=== PATIENT | female | born 1980 | race Caucasian/White ===

== ENCOUNTER 2024-07-15 15:39 | Emergency (ER) | payer MEDICARE, SELFPAY ==
[2024-07-15 15:42] VITALS: BP 124/65; PULSE 56; RESP 18; TEMP 35.5; O2SAT 97; BMI 28.8
--- NOTE | 2024-07-15 15:57 | EDS_ITS ---
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 Patient status post hysterectomy with left oophorectomy May 11 for history of uterine fibroids and vaginal bleeding. She is on Coumadin history of valve repair 2016. This was performed by Dr. William. She states she followed up 2 to 3 weeks ago was cleared back to normal activities. She has been doing lifting with plans of moving here recently. Yesterday evening prior to taking a bath had slight bleeding then clots. Today more heavy clots going through 5 soaked pads since 9:30 AM little over 6 hours ago. She states she has felt fatigued since yesterday. She has had blood transfusion from gastric bypass 2018. Denies any abdominal or pelvic pain. She did report 3 weeks postop she had a laparoscopic stitch break seen at outside ER with suturing that controlled hemostasis. PFSH PFSH Allergy/AdvReac Type Severity Reaction Status Date / Time escitalopram (From Lexapro) AdvReac Mild Rash Verified 07/15/24 16:21 Social History Smoking Status: Current every day smoker tobacco type: cigarettes ROS ROS ED Constitutional Constitutional ED: Denies chills, fever(s) or sweats Eyes Eyes: Denies change in vision ENT ENT ED: Denies dysphagia or sore throat Cardiovascular Cardiovascular: Denies chest pain, leg edema, palpitations or racing heartbeat Respiratory/Chest Respiratory/Chest: Denies cough, dyspnea or dyspnea on exertion Gastrointestinal Gastrointestinal: Denies abdominal pain, diarrhea, nausea or vomiting Genitourinary Genitourinary ED: Reports other Details: vaginal bleeding w/ clots ; Denies dysuria, hematuria or urinary frequency Musculoskeletal Musculoskeletal: Denies back pain, extremity pain or neck pain Integumentary Denies rash or wounds Neurologic Neurologic: Denies headache(s), paresthesias or weakness EXAM Physical Exam Const Vital Signs: 07/15/24 15:42 07/15/24 17:40 07/15/24 19:00 Temperature 96 F L Temperature Source Temporal Pulse Rate 56 L 55 L 86 Respiratory Rate 18 17 19 H Blood Pressure 124/65 H 114/53 L 104/61 Blood Pressure Mean 84 73 75 Pulse Ox 97 97 97 Oxygen Delivery Method Room Air Room Air Room Air 07/15/24 21:00 07/15/24 23:00 07/16/24 01:00 Temperature 98 F Temperature Source Pulse Rate 45 L 43 L 61 Respiratory Rate 15 18 21 H Blood Pressure 109/45 L 124/53 H 105/54 L Blood Pressure Mean 66 76 71 Pulse Ox 97 98 97 Oxygen Delivery Method Room Air Room Air Positive well nourished and well developed General Appearance ED: well developed and NAD HEENT Reports moist mucous membranes normocephalic and atraumatic Eyes EOMs intact bilaterally and conjunctivae normal Eyes Narrative: Slight pallor of conjunctiva General Eye ED: Yes normal appearance of both eyes Neck no lymphadenopathy and supple General: Negative for tenderness Chest Wall Chest: Negative for tenderness Resp normal respiratory effort and normal air movement Effort and Inspection: symmetric chest movement; Negative for respiratory distress Cardio regular rate, regular rhythm and no murmurs Peripheral Pulses: pulses 2+ throughout GI normal to inspection, nondistended, normoactive bowel sounds and non-tender Palpation: Negative for guarding or rebound tenderness present Narrative: Speculum exam with nursing present: Fresh bright red blood in the vault, there was a clot region of the the previous cervix with suturing noted. There was no dehiscence of the wound. There was small amount of blood from this area. There is no other areas of injury noted. Back/Spine no CVA tenderness and no thoracic nor lumbar tenderness Extremity normal to inspection General Extremety ED: Negative for edema or tenderness General Extremity: Negative for edema Neuro oriented x3 and no sensory deficits noted Sensorium / Orientation: awake and alert Skin no rashes or lesions noted and no wounds MDM MDM MDM Narrative Medical decision making narrative: Interventions / MDM: Differential diagnosis: Dysfunction vaginal bleeding, chronic anticoagulation Diagnosis considered but do not suspect: No wound dehiscence noted. My EKG interpretation: N/A Imaging independently reviewed and interpreted by myself: CT abdomen pelvis IV contrast: Discussed with radiologist, hyperdense region above the cervix concerning for active bleed. External documents reviewed: N/A Test considered but not ordered:N/A ED course: Patient on warfarin vaginal bleeding status post laparoscopic hysterectomy but over 2 months ago. Laboratory studies were obtained. Vaginal exam fresh blood with small clot noted at the surgical wound site. There is no dehiscence. 1620: Hemoglobin 11.9. Awaiting INR. Will discuss with gynecology service image of choice for evaluation. 1624: I spoke with [facility] OB team with [place], discussed patient's history on warfarin and concerns of bleeding. Agrees with obtaining a CT abdomen pelvis IV contrast this time. Will monitor bleeding and callback. 2054: Patient was seen by Dr. Vallejo in the ED. With her medical history and limited equipment and staff down in the [facility]. She recommended transfer she made calls to [facility]. I discussed with Dr. Mindi Resendiz, [employer] at [facility]. She would like me to place a Rinaldi down the ED and packed the vaginal region and we will plan a ED to ED transfer to [facility]. 2199: nursing present Rinaldi was placed. Speculum exam again there was bright red blood in the vault, there was clots. This was removed with a Q-tip. Nursing reported she removed 1 gauze. Per MANAGER MAIL note, reported there was 2 gauze placed, however thorough examination did not see additional gauze. I used Curlex dressing packed the vaginal vault using forceps. This was all done in 1 piece. I spoke with the ED physician Dr. Gurrola. Requested redraw H&H. Her H&H did return at 9.6 down from 11.9. Her blood pressure is stable. 0030: Awaiting transport at this time. Blood pressure been stable. per nursing no significant bleeding from the packing. It has been 3 hours since her H&H. Will recheck at this time. 0034: Repeat hemoglobin went up to 10.3. Re-evaluation: stable Disposition discussed with patient/family/significant other: Patient Case discussed with consulting clinician: [facility] gynecology, Dr. Vallejo. [facility] gynecology Dr. Resendiz, ED physician [facility] Dr. Gurrola This note was generated with [employer] dictation software. It may contain incorrect words, spelling, and punctuation that were not noted in checking the note before signing. Lab Data Attestation: I reviewed the patient's lab results. Labs: Laboratory Results - last 24 hr 07/15/24 07/15/24 07/15/24 16:10 17:13 21:22 WBC 5.7 RBC 4.06 L Hgb 11.9 L 9.6 L Hct 37.0 30.3 L MCV 91.1 MCH 29.3 MCHC 32.2 RDW Std Deviation 47.0 H RDW Coeff of Escobar 14.0 Plt Count 226 MPV 11.4 Immature Gran % (Auto) 0.200 Neut % (Auto) 66.8 Lymph % (Auto) 22.0 Hettinger % (Auto) 7.2 Eos % (Auto) 3.5 Baso % (Auto) 0.3 Absolute Neuts (auto) 3.8 Absolute Lymphs (auto) 1.26 Nucleated RBC % 0 PT 31.4 H INR 3.1 APTT 44.9 H Sodium 142 Potassium 3.8 Chloride 112 H Carbon Dioxide 26.0 Anion Gap 4 L BUN 13 Creatinine 0.88 Estim Creat Clear Calc 68.90 Est GFR (MDRD) Af Amer 89 Est GFR (MDRD) Non-Af 74 BUN/Creatinine Ratio 14.8 Glucose 139 H Calcium 8.7 Blood Type A POSITIVE Antibody Screen NEGATIVE 07/16/24 00:27 WBC RBC Hgb 10.3 L Hct 32.8 L MCV MCH MCHC RDW Std Deviation RDW Coeff of Escobar Plt Count MPV Immature Gran % (Auto) Neut % (Auto) Lymph % (Auto) Hettinger % (Auto) Eos % (Auto) Baso % (Auto) Absolute Neuts (auto) Absolute Lymphs (auto) Nucleated RBC % PT INR APTT Sodium Potassium Chloride Carbon Dioxide Anion Gap BUN Creatinine Estim Creat Clear Calc Est GFR (MDRD) Af Amer Est GFR (MDRD) Non-Af BUN/Creatinine Ratio Glucose Calcium Blood Type Antibody Screen Radiography Diagnostic Testing: Clinical Impression(s) from Imaging Studies Abdomen/Pelvis CT 07/15/24 16:27 IMPRESSION: Small hyperdense focus in the vaginal cuff or cervix, on the left possibly a focus of active bleeding, versus prominent vessel. No acute intra-abdominal findings. Electronically Signed: Essence Velarde MD at 17:20 EDT , ADDENDUM: 07/15/24 8575 IMPRESSION: Small hyperdense focus in the vaginal cuff or cervix, on the left possibly a focus of active bleeding, versus prominent vessel. No acute intra-abdominal findings. N.B. : The above Results were Read Back by Essence Velarde MD to Edgard Killian DO, and understanding confirmed on 07/15/2024 17:27:23 (ET). Electronically Signed: Essence Velarde MD at 17:20 EDT , Critical Care Time Critical Care Time: Yes Critical care time (excluding procedures): 30-74 minutes, Including time spent:, Discussing w/Patient &/or Family/Paraoptometric, Discussing w/Consultants, Arranging Admission or Transfer, Performing Direct Patient Care at Bedside and - (45 minutes) Discharge Plan Triage Chief Complaint: Vag Bleeding ED Provider: Edgard Killian Dx/Rx/DC Orders Clinical Impression: Postoperative hemorrhage, Chronic anticoagulation, Status post hysterectomy, Mechanical heart valve present, Anemia Primary Care Provider: Jim Macedo Referrals: Jim Macedo MD [Primary Care Provider] - Print Language: Indian Disposition Disposition: DC/Tx to Another Type of HCF
[2024-07-15 16:15] LABS: Absolute Lymphocyte Count 1.26 X10^3/uL (0.83-4.51); Absolute Neutrophil Count 3.8 X10^3/uL (2.0-7.7); Basophil# 0.02 X10^3/uL; Basophil% 0.3 % (0-1); Eosinophils% 3.5 % (0-5); Hemoglobin 11.9 g/dL (12.0-15.0); Lymphocyte # 1.26 X10^3/ul (0.83-4.51); Mean Corp Hgb Conc 32.2 g/dL (32-36); Mean Corpuscular Hgb 29.3 pg (27.0-32.0); Mean Corpuscular Volume 91.1 fL (81-99); Mean Platelet Vol. 11.4 fl (6.2-12.0); Monocyte# 0.41 X10^3/uL; Monocyte% 7.2 % (0-10); NRBC Flagged by Analyzer 0 % (0-5); Neutrophil # 3.82 X10^3/uL (2.7-7.7); Neutrophil % 66.8 % (47-70); Platelet Count 226 K/mm3 (150-450); Red Blood Count 4.06 M/mm3 (4.2-5.4); White Blood Count 5.7 K/mm3 (4.4-11.0)
[2024-07-15 16:26] LABS: International Normalized Ratio 3.1; Prothrombin Time (Protime)PT. 31.4 SECONDS (11.7-14.9)
[2024-07-15 16:27] LABS: Partial Thromboplast Time 44.9 Seconds (24.1-36.2)
--- NOTE | 2024-07-15 16:27 | CT_ITS ---
We are attempting to reach an attending provider to discuss findings. An addendum with communication details will be sent when the communication is complete. EXAM: CT Abdomen And Pelvis W/ Contrast Injection HISTORY: vaginal bleed TECHNIQUE: Routine protocol CT abdomen pelvis. IV Contrast: IV 100mL Isovue-370 . Oral Contrast: without. Sagittal and coronal images were reconstructed. RADIATION DOSAGE (If Supplied By Facility): CTDIvol = ( 17.22 ) mGy, DLP = ( 881.24 ) mGycm Individualized dose optimization techniques were used for this CT. COMPARISON: CT abdomen and pelvis 10/16/2010. LIMITATIONS: None. FINDINGS: LOWER CHEST: Interstitial changes in the lung bases. Calcifications along the left ventricular wall. Pacemaker lead, mitral valve prosthesis, sternal wires. LIVER: Unremarkable. GALLBLADDER/BILE DUCTS: Gallbladder not identified presumed surgically absent. PANCREAS: Unremarkable. SPLEEN: Unremarkable. ADRENAL GLANDS: Unremarkable. KIDNEYS / URETERS: Unremarkable. BOWEL / MESENTERY: Surgical clips in the upper and left mid abdomen post gastric bypass. No bowel obstruction. APPENDIX: Identified and normal. No evidence of acute appendicitis. PERITONEUM: No free air. No free fluid. VESSELS: Abdominal aorta is normal caliber. RETROPERITONEUM: Unremarkable. REPRODUCTIVE ORGANS: Uterus is not identified. There is a small hyperdense focus in the vaginal cuff to the left of midline possibly prominent vessel, active bleeding not entirely excluded. BLADDER: Unremarkable. ABDOMINAL WALL: Unremarkable. BONES: No acute abnormality. OTHER: None. CT/Abdomen/Pelvis W IV Cont ONLY IMPRESSION: Small hyperdense focus in the vaginal cuff or cervix, on the left possibly a focus of active bleeding, versus prominent vessel. No acute intra-abdominal findings. Electronically Signed: Essence Velarde MD at 17:20 EDT ,
[2024-07-15 16:29] LABS: Anion Gap 4 (5-15); BUN 13 mg/dL (7-18); BUN/Creat Ratio 14.8 RATIO (10-20); Calcium,Total 8.7 mg/dL (8.5-10.1); Chloride 112 mmol/L (98-107); Creatinine, Serum 0.88 mg/dL (0.55-1.02); EST Glomerular Filtration Rate 74 mL/min (>60); Est Glom Filt Rate - Afr Amer 89 mL/min (>60); Glucose 139 mg/dL (74-106); Potassium 3.8 mmol/L (3.5-5.1); Sodium Level 142 mmol/L (136-145)
[2024-07-15 17:40] VITALS: BP 114/53; PULSE 55; RESP 17; O2SAT 97
[2024-07-15] MEDS: Phytonadione (Vit K) 10 MG in 0.9% Normal Saline (50mL Bag) 50 ML 150 MG IV (17:46)
[2024-07-15] MEDS: 0.9% Normal Saline (1000mL) 1,000 ML 75 ML IV (18:13)
[2024-07-15 19:00] VITALS: BP 104/61; PULSE 86; RESP 19; O2SAT 97
--- NOTE | 2024-07-15 19:26 | CON.PCM.OB_ITS ---
Assessment & Plan (1) Postoperative hemorrhage: PLAN: Postoperative vaginal hemorrhage. Patient is very complex medically and surgically. Had surgery initially at a tertiary care center because of her complex medical and surgical history. She continues to have active vaginal bleeding. I do not see an active pumper. However it does accumulate and then she passes clots when examined. She is hemodynamically stable for transport. I did place 2 radiopaque sponges in her vagina for packing. That is all she can tolerate. I talked to transport line, waiting to hear back from [facility] HPI Consult Data Date of Consult: 07/15/24 HPI Narrative Reason for Consultation: Vaginal bleeding HPI Narrative: SURINDER HURLEY, is a 44 F who presents status post total laparoscopic hysterectomy bilateral salpingectomy and left oophorectomy with cystoscopy on 06/06/2024 at [facility] by Dr. Paige paige. Patient reports she had no significant vaginal bleeding up until today. She began saturating a maxi pad per hour over 4 to 5 hours and was told to come to emergency room. She actually paged through the clinic for the on-call doctor and who recommended emergency room evaluation. Patient denies any fevers or chills. She states she was seen for postoperative visit. She denies any trauma to the area or unusual activity today. She did not have intercourse. Her pain is not significantly increased. 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 Past surgical history is significant for laparoscopic cholecystectomy, breast reduction, , hernia repair, gastric bypass, heart surgery, hysterectomy [facility] Allergy/AdvReac Type Severity Reaction Status Date / Time escitalopram (From Lexapro) AdvReac Mild Rash Verified 07/15/24 16:21 Social History Smoking Status: Current every day smoker tobacco type: cigarettes Vital Signs Vital Signs Vital Signs: 07/15/24 15:42 07/15/24 17:40 Temperature 96 F L Temperature Source Temporal Pulse Rate 56 L 55 L Respiratory Rate 18 17 Blood Pressure 124/65 H 114/53 L Blood Pressure Mean 84 73 Pulse Ox 97 97 Oxygen Delivery Method Room Air Room Air Weight Weight: 66.905 kg Body Mass Index (BMI) 28.8 ROS ROS Narrative Patient Physical Exam Const alert General Appearance: cooperative and comfortable Narrative: Normal external genitalia, normal urethra and anus. Normal labia. Normal hair distribution pattern. Well supported vaginal cuff with bright red blood and some clot in the vault. Patient reports she has had the current pad on for approximately the past hour and with the blood in her bowl and on the pad there is approximately 100 cc of blood. There is some small oozing from the top of the cuff. The cuff appears intact but I cannot see a discrete area where there is a blood vessel pumping. There is no significant tenderness at the cuff. There is no purulence. Abdomen is soft, nontender, nondistended, no rebound, some voluntary guarding Lab / Micro Data 07/15/24 16:10 07/15/24 16:10 Labs: Laboratory Results - last 24 hr 07/15/24 16:10: WBC 5.7, RBC 4.06 L, Hgb 11.9 L, Hct 37.0, MCV 91.1, MCH 29.3, MCHC 32.2, RDW Std Deviation 47.0 H, RDW Coeff of Escobar 14.0, Plt Count 226, MPV 11.4, Immature Gran % (Auto) 0.200, Neut % (Auto) 66.8, Lymph % (Auto) 22.0, Grainger % (Auto) 7.2, Eos % (Auto) 3.5, Baso % (Auto) 0.3, Absolute Neuts (auto) 3.8, Absolute Lymphs (auto) 1.26, Nucleated RBC % 0, PT 31.4 H, INR 3.1, APTT 44.9 H, Sodium 142, Potassium 3.8, Chloride 112 H, Carbon Dioxide 26.0, Anion Gap 4 L, BUN 13, Creatinine 0.88, Estim Creat Clear Calc 68.90, Est GFR (MDRD) Af Amer 89, Est GFR (MDRD) Non-Af 74, BUN/Creatinine Ratio 14.8, Glucose 139 H, Calcium 8.7 07/15/24 17:13: Blood Type A POSITIVE Imaging Radiology Impression Abdomen/Pelvis CT 07/15/24 16:27 IMPRESSION: Small hyperdense focus in the vaginal cuff or cervix, on the left possibly a focus of active bleeding, versus prominent vessel. No acute intra-abdominal findings. Electronically Signed: Essence Velarde MD at 17:20 EDT , ADDENDUM: 07/15/24 1734 IMPRESSION: Small hyperdense focus in the vaginal cuff or cervix, on the left possibly a focus of active bleeding, versus prominent vessel. No acute intra-abdominal findings. N.B. : The above Results were Read Back by Essence Velarde MD to Edgard Killian DO, and understanding confirmed on 07/15/2024 17:27:23 (ET). Electronically Signed: Essence Velarde MD at 17:20 EDT ,
[2024-07-15 21:00] VITALS: BP 109/45; PULSE 45; RESP 15; O2SAT 97
[2024-07-15 21:42] LABS: Hematocrit 30.3 % (37-47); Hemoglobin 9.6 g/dL (12.0-15.0)
--- NOTE | 2024-07-15 22:55 | ED.RN ---
Report given to Elle BLOCK at [facility] Main.
[2024-07-15 23:00] VITALS: BP 124/53; PULSE 43; RESP 18; TEMP 36.6; O2SAT 98
[2024-07-16 00:32] LABS: Hematocrit 32.8 % (37-47); Hemoglobin 10.3 g/dL (12.0-15.0)
[2024-07-16 01:00] VITALS: BP 105/54; PULSE 61; RESP 21; O2SAT 97
== END 2024-07-16 02:19 | disposition other institution (70) ==
PROVIDERS: Emergency Provider Emergency Medicine; PCP Family Medicine; Visit Provider Emergency Medicine
DX: N99.820 Postprocedural hemorrhage of a genitourinary system organ or structure following a genitourinary system procedure (principal); I11.0 Hypertensive heart disease with heart failure; I50.9 Heart failure, unspecified; D64.9 Anemia, unspecified; Z79.01 Long term (current) use of anticoagulants; E78.5 Hyperlipidemia, unspecified; Z86.73 Personal history of transient ischemic attack (TIA), and cerebral infarction without residual deficits; Z90.710 Acquired absence of both cervix and uterus; Z90.721 Acquired absence of ovaries, unilateral; Z95.2 Presence of prosthetic heart valve; F17.200 Nicotine dependence, unspecified, uncomplicated; Z90.49 Acquired absence of other specified parts of digestive tract
CPT/HCPCS: 51702; 74177; 80048; 85014; 85018; 85025; 85610; 85730; 86850; 86900; 86901; 96361; 96365; 99285; Q9967; A4216; J3490